=== PATIENT | male | born 1955 | race Caucasian/White ===

== ENCOUNTER → 2016-12-08 | Outpatient (CLI) | payer OTHER | END | disposition home or self-care (01) | LOC: PCVCIMAG 13:18 | PROVIDERS: ATTEND Internal Medicine | DX: I35.0 Nonrheumatic aortic (valve) stenosis (principal); I71.2 Thoracic aortic aneurysm, without rupture; I10 Essential (primary) hypertension; E78.5 Hyperlipidemia, unspecified | CPT/HCPCS: 80061; 93005; 93306; G0463; 93325; 93351 ==

== ENCOUNTER → 2017-12-02 | Outpatient (CLI) | payer OTHER | END | disposition home or self-care (01) | LOC: PCVCIMAG 10:27 | DX: I08.8 Other rheumatic multiple valve diseases (principal); I71.2 Thoracic aortic aneurysm, without rupture; I10 Essential (primary) hypertension; E78.5 Hyperlipidemia, unspecified; Z79.899 Other long term (current) drug therapy | CPT/HCPCS: 80061; 93005; 93306; G0463 ==

== ENCOUNTER → 2018-12-14 | Outpatient (CLI) | payer OTHER ==
--- NOTE | 2018-12-14 17:15 | PCVCIMAG ---
APPROVED REPORT Study performed: 12/14/2018 14:52:09 EXAM: Comprehensive 2D, Doppler, and color-flow Echocardiogram Patient Location: Echo lab Room #: 2Status: routine BSA: 2.38 HR: 60 bpmBP: 126/86 mmHg Rhythm: NSR Other Information Study Quality: Adequate Risk Factors: Cardiac Risk Factors: HTN, Hyperlipidemia Indications Aortic Valve Disease Hypertension/HDD tHORACIC AORTIC ANEURYSM 2D Dimensions IVSd: 9.01 (7-11mm)LVOT Diam: 22.35 (18-24mm) LVDd: 57.34 mm PWd: 8.88 (7-11mm)Ascending Ao: 42.00 (22-36mm) LVDs: 32.44 (25-40mm)Aortic Arch: 25.0 (22-36mm) Left Atrium: 39.00 (27-40mm) Aortic Root: 36.34 mm LV Single Plane 4CH: 59.70 % LV Single Plane 2CH: 66.88 % Biplane EF: 64.0 % Volumes Left Atrial Volume (Systole) Single Plane 4CH: 73.75 mLSingle Plane 2CH: 84.22 mL Biplane LA Volume: 86.00 mLLA ESV Index: 36.00 mL/m2 Aortic Valve AoV Peak Marck.: 3.79 m/s AO Peak Gr.: 64.08 mmHgLVOT Max P.50 mmHg AO Mean Gr.: 39.54 mmHgLVOT Mean P.48 mmHg AO V2 Mean: 3.00 m/sLVOT Max V: 0.97 m/s AO V2 VTI: 102.17 cmLVOT Mean V: 0.76 m/s VALENCAI (VTI): 1.05 [id number] V1 VTI: 27.47 cm VALENCIA Vmax: 1.00 cm2 SV (LVOT): 107.73 mL Mitral Valve E/A Ratio: 1.1 MV Decel. Time: 194.61 ms MV E Max Marck.: 0.60 m/s MV A Marck.: 0.57 m/s IVRT: 83.04 ms TDI E/Lateral E': 8.57E/Medial E': 7.50 Medial E' Marck.: 0.08 m/s Lateral E' Marck.: 0.07 m/s Pulmonary Valve PV Peak Marck.: 0.90 m/sPV Peak Gr.: 3.27 mmHg Pulmonary Vein P Vein S: 0.44 m/sP Vein A: 0.27 m/s P Vein D: 0.37 m/sP Vein A Dur.: 96.9 msec P Vein S/D Ratio: 1.19 Tricuspid Valve TR Peak Marck.: 2.48 m/s TR Peak Gr.: 24.66 mmHg TV Vmax: 0.51 m/sPA Pressure: 32.00 mmHg Left Ventricle The left ventricle is normal size. There is normal LV segmental wall motion. There is normal left ventricular wall thickness. Left ventricular systolic function is normal. The left ventricular ejection fraction is within the normal range. LVEF is 60-65%. The left ventricular diastolic function is normal. Right Ventricle The right ventricle is normal size. The right ventricular systolic function is normal. Atria Left atrium is mildly dilated. The right atrium size is normal. Aortic Valve Aortic valve is moderately calcified, moderate-severely stenotic Trace to mild aortic regurgitation. Calculated aortic valve area is 1.0-1.1 cm2 with maximum pressure gradient of 57 mmHg and mean pressure gradient of 40 mmHg. Mitral Valve The mitral valve is normal in structure. There is no mitral valve regurgitation noted. No evidence of mitral valve stenosis. Tricuspid Valve The tricuspid valve is normal in structure. Mild tricuspid regurgitation with a PA pressure of 32 mmHg. Pulmonic Valve The pulmonary valve is normal in structure. There is no pulmonic valvular regurgitation. Great Vessels The aortic root is normal in size. Ascending aorta is dilated (4.2cm) IVC is normal in size and collapses >50% with inspiration. Pericardium There is no pericardial effusion. There is no pleural effusion. <Conclusion> Left ventricular systolic function is normal. There is normal LV segmental wall motion. LVEF 60-65%. Aortic valve is moderately calcified, moderately stenotic. Trace to mild aortic regurgitation. Calculated aortic valve area is 1.0-1.1 cm2 with maximum pressure gradient of 57 mmHg and mean pressure gradient of 40 mmHg. The mitral valve is normal in structure. No mitral valve regurgitation. Mild tricuspid regurgitation with a pulmonary artery pressure of 32 mmHg. Ascending aorta is dilated (4.2cm) There is no pericardial effusion.
== END | disposition home or self-care (01) ==
LOC: PCVCIMAG 14:26
PROVIDERS: ATTEND Internal Medicine
DX: I08.2 Rheumatic disorders of both aortic and tricuspid valves (principal); I10 Essential (primary) hypertension; I71.2 Thoracic aortic aneurysm, without rupture; E78.5 Hyperlipidemia, unspecified; M19.90 Unspecified osteoarthritis, unspecified site; E66.9 Obesity, unspecified; Z79.899 Other long term (current) drug therapy
CPT/HCPCS: 93306